=== PATIENT | female | born 1965 | race Caucasian/White ===

== ENCOUNTER 2016-05-30 00:55 | Emergency (ER) | payer OTHER ==
[~2016-05-30 00:55] MED LIST: CITA40TA22 PO; REMERON
--- NOTE | 2016-05-30 01:15 | NUR ---
Pt states she is filling better and does not want to be triaged at this time. Patient left without being seen.
== END 2016-05-30 01:15 | disposition left against medical advice (07) ==
LOC: SED 00:55
DX: R10.9 Unspecified abdominal pain (principal); F41.9 Anxiety disorder, unspecified; Z53.21 Procedure and treatment not carried out due to patient leaving prior to being seen by health care provider; Z86.59 Personal history of other mental and behavioral disorders